=== PATIENT | male | born 1975 ===

== ENCOUNTER 2018-03-18 15:54 | Emergency (ER) | payer BC, OTHER ==
[2018-03-18 16:06] VITALS: BP 121/83
--- NOTE | 2018-03-18 16:12 | UC ---
Skin Complaint HPI - HPI Summary HPI Summary: 43 yo male presents with wasp sting to left forearm that occurred 2 days ago. He tells me that 2 days ago he was at work and was stung by a bee. He was stung two times this summer as well and did not have any reaction. This sting, however , has caused his left forearm to become swollen, red, and mildly tender. He has been taking benadryl daily. Denies fever, chills, SOB, difficulty breathing, or chest pain. - History of Current Complaint Chief Complaint: UCSkin Time Seen by Provider: 03/18/18 16:12 Stated Complaint: BEE STING Hx Obtained From: Patient Onset/Duration: Gradual Onset Onset Severity: Mild Current Severity: Mild Pain Intensity: 4 Pain Scale Used: 0-10 Numeric - Allergy/Home Medications Allergies/Adverse Reactions: Allergies Allergy/AdvReac Type Severity Reaction Status Date / Time No Known Allergies Allergy Verified 03/18/18 16:06 Home Medications: Home Medications Albuterol HFA INHALER* [Ventolin HFA Inhaler*] 2 puff INH Q4H PRN 03/18/18 [ History Confirmed 03/18/18] Methylphenidate TAB* [Ritalin TAB*] 1 tab PO DAILY 03/18/18 [History Confirmed 03/18/18] Review of Systems Constitutional: Negative Skin: Other - Bee sting left forearm Respiratory: Negative Cardiovascular: Negative Neurovascular: Negative Neurological: Negative Psychological: Negative All Other Systems Reviewed And Are Negative: Yes PMH/Surg Hx/FS Hx/Imm Hx - Additional Past Medical History Additional PMH: ADHD - Surgical History Surgical History: Yes Surgery Procedure, Year, and Place: appy. deviated septum surgery - Family History Known Family History: Positive: None - Social History Occupation: Employed Full-time Lives: With Family Alcohol Use: Occasionally Substance Use Type: None Smoking Status (MU): Never Smoked Tobacco Physical Exam - Summary Physical Exam Summary: GENERAL: NAD. WDWN. No pain distress. SKIN: Left forearm: Medial aspect with 1mm puncture wound at bee sting site. Left forearm with moderate edema extending from elbow to hand. Mild warmth and erythema. No streaking, drainage, or bleeding. NECK: Supple. Nontender. No lymphadenopathy. CHEST: No accessory muscle use. Breathing comfortably and in no distress. CV: Pulses intact. Cap refill <2seconds NEURO: Alert. PSYCH: Age appropriate behavior. Triage Information Reviewed: Yes Vital Signs: Initial Vital Signs Temp 98.4 F 03/18/18 16:00 Pulse 83 03/18/18 16:00 Resp 16 03/18/18 16:00 BP 121/83 03/18/18 16:00 Pulse Ox 98 03/18/18 16:00 Vital Signs Reviewed: Yes Course/Dx - Course Course Of Treatment: Cellulitis due to bee sting left arm. Advised to continue benadryl and apply ice. Will rx for anbx and prednisone for cellulitis. - Diagnoses Provider Diagnoses: Cellulitis left arm Discharge - Sign-Out/Discharge Documenting (check all that apply): Patient Departure All imaging exams completed and their final reports reviewed: No Studies - Discharge Plan Condition: Stable Disposition: HOME Prescriptions: Cephalexin CAP* [Keflex CAP*] 500 mg PO BID #14 cap predniSONE TAB* [Deltasone 20 MG TAB*] 40 mg PO DAILY #9 tab Patient Education Materials: Insect Bite or Sting (ED) Referrals: Prasanna Palomo MD [Primary Care Provider] - Additional Instructions: If you develop a fever, shortness of breath, chest pain, new or worsening symptoms - please call your PCP or go to the ED. 1) Continue to take benadryl and ice your arm - Billing Disposition and Condition Condition: STABLE Disposition: Home
== END 2018-03-18 16:30 | disposition home or self-care (01) ==
LOC: UCEAST 15:54
DX: L03.114 Cellulitis of left upper limb (principal); F90.9 Attention-deficit hyperactivity disorder, unspecified type
CPT/HCPCS: 99202; G0463

== ENCOUNTER 2019-03-19 12:14 | Emergency (ER) | payer BC ==
[2019-03-19 12:21] VITALS: BP 108/71
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
== END 2019-03-19 13:08 | disposition home or self-care (01) ==
LOC: UCEAST 12:14
DX: M79.671 Pain in right foot (principal); F98.8 Other specified behavioral and emotional disorders with onset usually occurring in childhood and adolescence
CPT/HCPCS: 99211; G0463